=== PATIENT | female | born 1980 | race Caucasian/White ===

== ENCOUNTER 2017-04-03 17:51 | Emergency (ER) | payer OTHER ==
[~2017-04-03] VITALS: Ht 162.6 cm; Wt 90.9 kg
[2017-04-03] MEDS ORDERED: BENZ-51 PO (18:04)
[2017-04-03] MEDS ORDERED: ALBU8HFA IH (18:04)
[2017-04-03 19:00] LABS: INFLUENZA TYPE A NEGATIVE FOR TYPE A (NEGATIVE); INFLUENZA TYPE B NEGATIVE FOR TYPE B (NEGATIVE); RAPID GROUP A STREP NEGATIVE (NEGATIVE)
[2017-04-03 20:31] VITALS: BP 122/78
== END 2017-04-03 20:34 | disposition home or self-care (01) ==
LOC: EMS 17:54
DX: J40 Bronchitis, not specified as acute or chronic (principal); J45.909 Unspecified asthma, uncomplicated
CPT/HCPCS: 87430; 87804; 99284